=== PATIENT | female | born 2000 | race Two or more races ===

== ENCOUNTER 2025-03-23 23:04 | Emergency (ER) | payer BC ==
[~2025-03-23] VITALS: Ht 165.1 cm; Wt 65.8 kg
[2025-03-23 23:54] VITALS: BP 107/65; TEMP 97.9; O2SAT 98
[2025-03-24] MEDS ORDERED: TDAP [DIPH/PERTUSSIS/TET] 0.5 ML VIAL IM ONE (00:02)
[2025-03-24] MEDS: TDAP [DIPH/PERTUSSIS/TET] 0.5 ML VIAL IM ONE (00:04)
== END 2025-03-24 00:53 | disposition home or self-care (01) ==
LOC: ER 23:09
DX: S51.812A Laceration without foreign body of left forearm, initial encounter (principal); F32.A Depression, unspecified; F41.9 Anxiety disorder, unspecified; Z60.2 Problems related to living alone; W26.8XXA Contact with other sharp object(s), not elsewhere classified, initial encounter; Y93.89 Activity, other specified; Y92.89 Other specified places as the place of occurrence of the external cause; Y99.8 Other external cause status
CPT/HCPCS: 90715